=== PATIENT | female | born 1975 | race Caucasian/White ===

== ENCOUNTER 2024-02-03 18:05 | Emergency (ER) | payer OTHER, SELFPAY ==
[2024-02-03 18:09] VITALS: BP 164/116
--- NOTE | 2024-02-03 19:18 | ED.GENMED ---
History of Present Illness
General
Chief Complaint: Cold/Flu/URI Symptoms
Source: patient
Exam Limitations: none
Time Seen by Provider: 02/03/24 18:38
History of Present Illness
History of Present Illness:
This is a 48 year old female that comes in with c/o right sided headache. States that on Monday a week ago she had some reflux and constipation. This happens sometimes before she gets sick. Then she started with a low grade fever and body aches.
States that on Monday she went to see the PCP and was told that this was viral. States that after she saw him she broke out in a rash all over. Then last night she started with a headache across the forehead. States that she was also vomiting with
this. Then today her face on the right sided is sensitive. States that her head to touch is very sensitive along with the right arm. States that this is normal for her migraines to be on one side. States that she had some diarrhea. Denies any
fever, chills, chest pain, SOB, abd pain, nausea, vomiting, dizziness, urinary burning. .
Past History
Past History
ED Past Medical History: GERD, Psychiatric (Anxiety) and Other ('Stomach issues', chronic intermittent constipation, migraines, Esophageal spams. Vertigo, )
ED Past Surgical History: (X 2), Gynecological (Oophorectomy L side) and Other (Hemorrhoidectomy, Anal fistulotomy)
Social History
Tobacco: Vaping (Vapes nicotine, one cartridge per day)
Alcohol: Occasional
Drug: None
Personal:
Living: with family
Employment: Employed
Family History
Family History: Hypertension
Review of Systems
Review of Systems
All Other Systems: ROS reviewed and negative except as documented in HPI and ROS
Constitutional: Reports no symptoms; Denies fever or chills
EENT: Reports no symptoms
Cardiac: Reports no symptoms; Denies chest pain
ABD/GI: Reports diarrhea; Denies abdominal pain, nausea or vomiting
: Reports no symptoms; Denies dysuria, frequency or urgency
Musculoskeletal: Reports no symptoms
Skin: Reports no symptoms
Neurological: Reports headache and other (right sided head and face sensitive to tough, ); Denies dizzy
Psychiatric: Reports no symptoms
Phy Exam
General Physical Exam
General Presentation: well appearing and no apparent distress
General age: appears stated age
General Skin: warm and dry
General Habitus: normal
General Mental: alert
General Hydration: dry mucous membranes
ENT Exam
ENT Exam: TM's normal, pharynx normal and neck supple
Eye Exam
Eye Exam: EOMI
Cardiovascular Exam
Cardiovascular Exam: regular rate/rhythm, no edema and normal peripheral pulses
Pulmonary Exam
Pulmonary Exam: lungs clear, no respiratory distress, no rales, chest non tender, no crackles, no rhonchi, no wheezing and no cough
Gastrointestinal Exam
Gastrointestinal Exam: normal bowel sounds, non tender, soft, no organomegaly, no pulsatile mass and non distended
Musculoskeletal Exam
Musculoskeletal Exam: full ROM and no edema
Skin Exam
Skin Exam: normal color, warm/dry, no petechia and other (Slight redness on the right neck area)
Psychiatric Exam
Psychiatric Exam: normal mood/affect
Course
Orders/Labs/Results
Orders:
Orders
02/03/24 19:17
0.9% Sodium Chloride 1000 ml [Nss] 1,000 ml IV BOLUS
Acetaminophen 1000MG/100Ml [Ofirmev] 1,000 mg in 100 ml IV ONCE
Acetaminophen IV Indication:: ED Narcotic Naive Pt-ONCE
Dexamethasone Sod Phosphate [Decadron] 20 mg IV NOW STA
Ketorolac [Toradol] 30 mg IV NOW STA
Test Result ONCE
02/03/24 19:24
Complete Blood Count/With Diff Urgent
Comprehensive Metabolic Panel Urgent
HCG, Serum Qualitative Screen Urgent
Abnormal Lab Results
02/03/24
19:24
WBC 2.5 L 10^3/uL
(4.8-10.8)
RBC 3.95 L 10^6/uL
(4.20-5.40)
Hgb 11.7 L g/dL
(12.0-16.0)
Hct 34.8 L %
(37.0-47.0)
MPV 11.7 H fL
(7.4-10.4)
Absolute Neuts (auto) 1.0 L 10^3/uL
(1.4-6.5)
02/03/24 19:24
02/03/24 19:24
Vital Signs
Initial and Last Documented VS:
Initial Vital Signs
Temp Pulse Resp BP Pulse Ox
99.7 F 95 16 164/116 99
02/03/24 18:09 02/03/24 18:09 02/03/24 18:09 02/03/24 18:09 02/03/24 18:09
Last Documented Vital Signs
Temp Pulse Resp BP Pulse Ox
99.7 F 61 20 123/75 97
02/03/24 18:09 02/03/24 20:00 02/03/24 20:00 02/03/24 20:00 02/03/24 20:05
MDM/Problems Addressed
Differential Diagnosis Includes:
Shingles, Migraines, viral syndrome
MDM/Problems Addressed:
this is a 48 year old female that comes in with c/o right sided head sensitivity and headache. Patient was sick a week ago on Monday. States that she had a rash all over her body after she had seen her PCP. This is mostly gone. Last night she
started with a headache and vomiting. Today her right face and head are sensitive to touch.
Will check labs and treat as Migraine. Offered patient a CT of the head but patient refused. Explained that there is no obvious herpetic rash at this time but this would be something that she needs to be watching for as shingles in only on the one
sided of the body and doesn't cross the mid line.
back into see patient. Explained that her wBC are low but this can also happen with a viral illness. Patient states that her headache is better but she was concerned about this right sided facial shocking and discomfort. Again brought up the CT scan
but patient refused. Will have patient follow up with the family doctor. Return with any concerns .
Chronic conditions affecting care:
Migraines
Acute Exacerbation and/or Progression of Chronic Illness:
Migraines
*Pulse Oximetry
Patient hypoxic: no
*EKG
Interpreted by ED Provider?: NA
Rate: EKG- N/A
*County Auditor Interpretation
Rate: County Auditor- N/A
*Critical Care Note
Total Time (30-74mins, 75-104mins- exclusive of procedures): Not Applicable
ED Attending Note
-
Portions of this chart may have been created with voice recognition software.� Occasional wrong word or��sound alike� substitutions may have occurred due to the inherent limitations of voice recognition software.
Discharge Plan
Departure
Patient Disposition: Home (Routine Discharge)
Date of Disposition: 02/03/24
Time of Disposition: 20:26
Patient with high blood pressure during this ER visit?: No
Condition: Good
Covid-19: Not Applicable
Discharge Problem:
Headache, Right sided facial pain
Instructions: Headache, Adult ED
Prescriptions:
No Action
calcium carbonate [Antacid (calcium carbonate)] 1 TABLET tablet,chewable
1 tab PO PRN PRN (Reason: heartburn)
famotidine [Pepcid AC] 10 MG tablet
10 mg PO BID
alprazolam 0.5 MG tablet
0.5 mg PO TIDPRN PRN (Reason: anxiety)
hniptmewlg-vklthieomvlnt-efra [Fioricet] 1 EACH capsule
1 ea PO PRN PRN (Reason: migraine)
Mylanta Maximum Strength Liq
30 ml PO PRN PRN (Reason: reflux)
sucralfate [Carafate] 1 GM/10 ML suspension
1 gm PO QIDPRN PRN (Reason: acid reflux) Qty: 560 0RF
eiqumnybr-sskotw-bqduxvse-scop [] 105 ML elixir
30 ml PO QIDPRN PRN (Reason: acid reflux) Qty: 360 0RF
Rx Instructions:
4 oz mylanta; 4 oz viscous lidocaine; 4 oz elixer
Referrals:
UNKNOWN - PT DOES,NOT KNOW [Family Provider] -
Activity Restrictions/Additional Instructions:
As discussed, your blood work shows that your WBC are low. This can happen with a viral illness. At this time there is no pustules on the right sided of the head or face. Please watch for any rash. Please increase your water intake to 8-8oz glasses
daily. Follow up with the family doctor. IF YOU HAVE ANY OTHER CONCERNS PLEASE RETURN TO THE EMERGENCY ROOM.
Interventions
Interventions:
*Risk Screen - Suicide Last Done: 02/03/24 19:26
*General Assessment Last Done: 02/03/24 19:26
ED- Fall Risk Assessment Last Done: 02/03/24 19:26
ED- Pulmonary Assessment Last Done: 02/03/24 19:39
Discharge Date and Time
Print Language: GERMAN
[2024-02-03] MEDS: NSS 1000 IV (19:25)
[2024-02-03] MEDS: OFIRMEV 100 IV (19:25)
[2024-02-03] MEDS: TORADOL 30 MG IV (19:25)
[2024-02-03 19:26] VITALS: BMI 33.0
[2024-02-03 19:30] VITALS: BP 143/91
[2024-02-03 19:45] LABS: % Eosinophils 1.6 % (0-6); % Lymphocytes 47.3 % (20.5-51.1); % Monocytes 8.6 % (1.7-9.3); % Neutrophils 42.5 % (42.2-75.2); Absolute Lymphocytes 1.2 10^3/uL (1.2-3.4); Absolute Monocytes 0.2 10^3/uL (0.1-0.6); Hematocrit 34.8 % (37.0-47.0); Hemoglobin 11.7 g/dL (12.0-16.0); Mean Corp Hgb Conc. 33.6 g/dL (33.0-37.0); Mean Corpuscular Hgb 29.6 pg (27.0-31.0); Mean Corpuscular Volume 88.1 fL (81.0-99.0); Mean Platelet Volume 11.7 fL (7.4-10.4); Nucleated Red Blood Cells % 0 %; Platelet Count 148 10^3/uL (130-400); Red Blood Cell Count 3.95 10^6/uL (4.20-5.40); Red Cell Dist. Width 12.5 % (11.5-14.5); White Blood Cell Count 2.5 10^3/uL (4.8-10.8)
[2024-02-03 20:00] VITALS: BP 123/75
[2024-02-03 20:00] LABS: HCG, Serum Qualitative Screen Negative
[2024-02-03 20:05] LABS: ALT (SGPT) 18 U/L (0-35); AST (SGOT) 22 U/L (14-36); Albumin 4.3 g/dl (3.5-5.0); Alkaline Phosphatase 70 U/L (38-126); Blood Urea Nitrogen 9 mg/dl (7-17); Calcium 9.3 mg/dl (8.4-10.2); Carbon Dioxide 25 mmol/L (22-30); Chloride 107 mmol/L (98-107); Estimated Creatinine Clearance 97 ml/min; Glucose 88 mg/dl (70-99); Potassium 3.9 mmol/L (3.5-5.1); Sodium 139 mmol/L (135-145); Total Bilirubin 0.2 mg/dl (0.2-1.3); Total Protein 6.7 g/dl (6.3-8.2); eGFR > 60.00
== END 2024-02-03 20:36 | disposition home or self-care (01) ==
LOC: EMR 18:05
PROVIDERS: Clinical Nurse Specialist Family Health; EMERGENCY PHYSICIAN Emergency Medicine
DX: R51.9 Headache, unspecified (principal); G50.1 Atypical facial pain; R50.9 Fever, unspecified; R11.10 Vomiting, unspecified; R21 Rash and other nonspecific skin eruption; R19.7 Diarrhea, unspecified; F41.9 Anxiety disorder, unspecified; K21.9 Gastro-esophageal reflux disease without esophagitis; F17.290 Nicotine dependence, other tobacco product, uncomplicated; Z88.2 Allergy status to sulfonamides; Z88.8 Allergy status to other drugs, medicaments and biological substances; Z88.1 Allergy status to other antibiotic agents; Z91.010 Allergy to peanuts
CPT/HCPCS: 99284; 96374; 96375; 80053; 84703; 85025

== ENCOUNTER 2024-06-15 09:19 | Emergency (ER) | payer OTHER, SELFPAY ==
[2024-06-15 09:26] VITALS: BP 155/94
--- NOTE | 2024-06-15 11:17 | ED.GENMED ---
History of Present Illness
General
Chief Complaint: Skin Problem
Source: patient
Exam Limitations: none
Time Seen by Provider: 06/15/24 10:51
Nursing documentation reviewed up to this point in time: agreed with
History of Present Illness
History of Present Illness:
Patient is a 49F female with hx GERD, anxiety presenting for evaluation of generalized rash. Patient states that she initially noticed small area of rash on her right lower leg in early May. This cleared up however over the past 2 weeks
patient noticed red, itchy rash across her body. Spots come and go throughout the day although appear worse at night. Lesions are very itchy causing difficulty sleeping. Patient denies any fevers, recent viral illnesses. She has not noted any
lesions in mouth.
Patient denies any associated fever, chills, headache, shortness of breath or difficulty breathing.
Patient denies any known new exposures or allergens. No known bug bites. No recent travel.
Patient was seen by her primary care about a week ago who advised that she use a antihistamine and Pepcid although has also been improvement
Past History
Past History
ED Past Medical History: GERD, Psychiatric (Anxiety) and Other ('Stomach issues', chronic intermittent constipation, migraines, Esophageal spams. Vertigo, )
ED Past Surgical History: (X 2), Gynecological (Oophorectomy L side) and Other (Hemorrhoidectomy, Anal fistulotomy)
Social History
Tobacco: Vaping (Vapes nicotine, one cartridge per day)
Alcohol: Occasional
Drug: None
Personal:
Living: with family
Employment: Employed
Family History
Family History: Hypertension
Review of Systems
Review of Systems
Allergies reviewed?: Yes
All Other Systems: ROS reviewed and negative except as documented in HPI and ROS
Phy Exam
Physical Exam
Physical Exam:
Vitals: Patient's vital signs are stable. Afebrile
General: Patient is well appearing, no acute distress. Nontoxic appearing
Skin: Very few scattered blanching erythematous papules and patches on upper and lower extremities. No evidence of mucosal involvement. No rash on palms or soles.
Head: Normocephalic, atraumatic
Throat: No oral lesions or palatal petechiae protecting airway
Neck: Normal ROM, no cervical spine tenderness
Cardiac: Regular rate
Pulm: No apparent respiratory distress. Lungs clear bilaterally
Abdomen: Soft and nontender. Nondistended
Extremities: No evidence of cyanosis or edema. Palpable DP pulses
Neuro: Grossly intact
Psychiatric: Normal affect.
Course
Vital Signs
Initial and Last Documented VS:
Initial Vital Signs
Temp Pulse Resp BP Pulse Ox
98.1 F 113 18 155/94 100
06/15/24 09:26 06/15/24 09:26 06/15/24 09:26 06/15/24 09:26 06/15/24 09:26
Last Documented Vital Signs
Temp Pulse Resp BP Pulse Ox
98.1 F 113 18 155/94 100
06/15/24 09:26 06/15/24 09:26 06/15/24 09:26 06/15/24 09:26 06/15/24 09:26
MDM/Problems Addressed
Differential Diagnosis Includes:
Not limited to: contact dermatitis, urticaria, atopic dermatitis, bedbugs, granuloma annulare, etc.
MDM/Problems Addressed:
49-year-old female presenting for evaluation of pruritic rash, intermittent over the past few weeks. No mucosal involvement. No associated oral swelling, shortness of breath, GI symptoms. No recent viral illness. No fever. Patient mildly
hypertensive and tachycardic on arrival although normalized by my assessment. On exam�patient is in no apparent distress. She has very few scattered erythematous papules and patches on bilateral upper and lower extremities. No petechial lesions.
No evidence of mucosal involvement. Do not suspect contact dermatitis such as poison amna given course/appearance of rash. Do not suspect bedbugs or scabies. Do not suspect drug reaction. It is possible it is other contact exposure versus
urticarial lesions. Very low suspicion for acute emergent process. Feel patient is stable for outpatient management. discussed with patient regarding dermatology follow-up for possible biopsy if lesions persist given very few visible lesions today
on exam. Will trial very short course of low-dose steroids and antihistamines for symptomatic relief. Return precautions discussed at length with patient. She will follow closely with dermatology. Case seen with attending physician.
Chronic conditions affecting care:
N/A
Acute Exacerbation and/or Progression of Chronic Illness:
N/A
*Pulse Oximetry
Patient hypoxic: no
*EKG
Interpreted by ED Provider?: NA
*Setter Cold Rolling Machine Interpretation
Rate: Setter Cold Rolling Machine- N/A
*Critical Care Note
Total Time (30-74mins, 75-104mins- exclusive of procedures): Not Applicable
ED Attending Note
-
Portions of this chart may have been created with voice recognition software.� Occasional wrong word or��sound alike� substitutions may have occurred due to the inherent limitations of voice recognition software.
Discharge Plan
Departure
Patient Disposition: Home (Routine Discharge)
Date of Disposition: 06/15/24
Time of Disposition: 11:36
Patient with high blood pressure during this ER visit?: Yes
Condition: Good
Covid-19: Not Applicable
Discharge Problem:
Rash
Instructions: Skin Rash (DC), BLOOD PRESSURE
Prescriptions:
New
prednisone 20 mg tablet
20 mg PO DAILY Qty: 5 0RF
No Action
calcium carbonate [Antacid (calcium carbonate)] 1 TABLET tablet,chewable
1 tab PO PRN PRN (Reason: heartburn)
famotidine [Pepcid AC] 10 MG tablet
10 mg PO BID
alprazolam 0.5 MG tablet
0.5 mg PO TIDPRN PRN (Reason: anxiety)
dcfmlsocqp-fukarshkmvgzq-cwva [Fioricet] 1 EACH capsule
1 ea PO PRN PRN (Reason: migraine)
Mylanta Maximum Strength Liq
30 ml PO PRN PRN (Reason: reflux)
sucralfate [Carafate] 1 GM/10 ML suspension
1 gm PO QIDPRN PRN (Reason: acid reflux) Qty: 560 0RF
xbdiamitj-orrkzr-fqtbzpkn-scop [] 105 ML elixir
30 ml PO QIDPRN PRN (Reason: acid reflux) Qty: 360 0RF
Rx Instructions:
4 oz mylanta; 4 oz viscous lidocaine; 4 oz elixer
Referrals:
Hector Hoff DO [Family Provider] - Follow up in 1 week
Activity Restrictions/Additional Instructions:
RETURN TO THE EMERGENCY DEPARTMENT WITH ANY SHORTNESS OF BREATH/DIFFICULTY BREATHING, ORAL SWELLING, ABDOMINAL PAIN, FEVERS, WORSENING IN CURRENT SYMPTOMS, OR ANY OTHER CONCERNS
-A prescription for steroids been sent to your pharmacy. You should take this once a day for the next 5 days.
-You can take Benadryl as needed before bed for itch. This may cause drowsiness and you should not take prior to driving. You can try OTC Sarna lotion
-As discussed that she should schedule appoint with your service shop foreman for further evaluation/management. You may require a biopsy of these lesions if symptoms persist
Monitor your symptoms closely and return to the emergency department with any acute worsening/new symptoms or any other concerns
Interventions
Interventions:
*Risk Screen - Suicide Last Done: 06/15/24 09:26
*General Assessment Last Done: 06/15/24 09:26
*Neglect/Abuse Screening Last Done: 06/15/24 11:34
ED- Fall Risk Assessment Last Done: 06/15/24 11:34
*ED COVID-19 Vaccine History Last Done: 06/15/24 09:26
*Nursing Disposition Last Done: 06/15/24 11:44
Discharge Date and Time
Discharge Date/Time: 06/15/24 11:45
Print Language: SLOVENIAN
== END 2024-06-15 11:45 | disposition home or self-care (01) ==
LOC: EMR 09:19
PROVIDERS: EMERGENCY PHYSICIAN Emergency Medicine; FAMILY PHYSICIAN Family Medicine
DX: R21 Rash and other nonspecific skin eruption (principal); K21.9 Gastro-esophageal reflux disease without esophagitis; F41.9 Anxiety disorder, unspecified; Z82.49 Family history of ischemic heart disease and other diseases of the circulatory system; F17.290 Nicotine dependence, other tobacco product, uncomplicated
CPT/HCPCS: 99282

== ENCOUNTER 2024-06-22 | Emergency (ER) | payer OTHER, SELFPAY ==
[2024-06-22 00:17] VITALS: BP 153/101
--- NOTE | 2024-06-22 02:55 | ED.GENMED ---
History of Present Illness
General
Chief Complaint: Skin Problem
Time Seen by Provider: 06/22/24 02:54
History of Present Illness
History of Present Illness:
TIME OF INITIAL ENCOUNTER: 3 AM
HPI: Patient presents with 3 weeks of ongoing pruritus. She did not tolerate steroids. She was placed on steroids here and then followed up with a phone manager. The phone manager recommended a prolonged course of steroids. The patient admits
to rather severe amount of anxiety as well. She had been taking Xanax. She then was concerned about the possibly of being allergic to Xanax. She states that when her symptoms started it started out as a rash that was concerning for Lyme but this
was not tested.
EXAM:
GENERAL: Well appearing in no distress
HEENT: Moist oral mucosa
CARDIOVASCULAR: No murmurs, normal heart rate, regular rhythm, No chest wall tenderness
PULMONARY: No respiratory distress, breath sounds are clear and equal
ABDOMEN: Soft with no peritoneal signs, no tenderness
NEUROLOGIC: Excellent strength all extremities, no coordination deficits
PSYCHIATRIC: Appropriate mental status, normal insight and judgement
EXTREMITIES: Nontender, no edema, moves all extremities equally
SKIN: There is some scattered urticarial type lesions diffusely noted to the torso and the proximal extremities
NUMBER AND COMPLEXITY OF PROBLEMS ADDRESSED AT THE ENCOUNTER
� Chronic conditions affecting care: Anxiety, current, migraines
� Acute Exacerbation and/or Progression of Chronic Illness: This is a subacute problem
� Differential Diagnosis includes: Anxiety, Lyme disease, nonspecific pruritus/allergic reaction
AMOUNT AND/OR COMPLEXITY OF DATA TO BE REVIEWED AND ANALYZED
� I performed an independent evaluation of and my interpretation is:
EKG:
CT:
X-rays:
Laboratory Studies: White count and hemoglobin are normal, chemistries and LFTs are normal, Lyme pending
Other:
� Review of other/old records: Patient was seen here 06/15/2024 and I reviewed the notes from that day at that time she was given a 5-day course of 20 mg of prednisone
� Clinical information was obtained by an independent historian: Spoke to at bedside
� Prescriptions/Medications Considered but not given:
� Further testing considered but not performed:
RISK OF COMPLICATIONS AND/OR MORBIDITY OR MORTALITY OF PATIENT MANAGEMENT
� Social determinants of health affecting care: Lives at home
� Discussion with other providers:
� Escalation of care including admission/observation vs risk of discharge considered: No clear indication for admission to the hospital. The patient overall does not want to be on steroids as she really does not tolerate these.
ANY OTHER UPDATES: We did talk about
4:30 AM: I reassessed patient. Blood work is reassuring. Lyme pending. Using a very low dose of steroids.
Past History
Past History
ED Past Medical History: GERD, Psychiatric (Anxiety) and Other ('Stomach issues', chronic intermittent constipation, migraines, Esophageal spams. Vertigo, )
ED Past Surgical History: (X 2), Gynecological (Oophorectomy L side) and Other (Hemorrhoidectomy, Anal fistulotomy)
Social History
Tobacco: Vaping (Vapes nicotine, one cartridge per day)
Alcohol: Occasional
Drug: None
Personal:
Living: with family
Employment: Employed
Family History
Family History: Hypertension
Phy Exam
Physical Exam
Physical Exam:
See HPI
Course
Orders/Labs/Results
Orders:
Orders
06/22/24 03:23
Complete Blood Count/With Diff Urgent
Comprehensive Metabolic Panel Urgent
Lyme Progressive Urgent
Abnormal Lab Results
06/22/24
03:23
MPV 11.7 H fL
(7.4-10.4)
Glucose 106 H mg/dl
(70-99)
06/22/24 03:23
06/22/24 03:23
Vital Signs
Initial and Last Documented VS:
Initial Vital Signs
Temp Pulse Resp BP Pulse Ox
36.6 C 125 20 153/101 99
06/22/24 00:17 06/22/24 00:17 06/22/24 00:17 06/22/24 00:17 06/22/24 00:17
Last Documented Vital Signs
Temp Pulse Resp BP Pulse Ox
36.6 C 125 20 153/101 99
06/22/24 00:17 06/22/24 00:17 06/22/24 00:17 06/22/24 00:17 06/22/24 00:17
*Critical Care Note
Total Time (30-74mins, 75-104mins- exclusive of procedures): Not Applicable
ED Attending Note
-
Portions of this chart may have been created with voice recognition software.� Occasional wrong word or��sound alike� substitutions may have occurred due to the inherent limitations of voice recognition software.
Discharge Plan
Departure
Prescriptions:
No Action
calcium carbonate [Antacid (calcium carbonate)] 1 TABLET tablet,chewable
1 tab PO PRN PRN (Reason: heartburn)
famotidine [Pepcid AC] 10 MG tablet
10 mg PO BID
alprazolam 0.5 MG tablet
0.5 mg PO TIDPRN PRN (Reason: anxiety)
cmezqasraj-iflhpgsxlmhxa-djaf [Fioricet] 1 EACH capsule
1 ea PO PRN PRN (Reason: migraine)
Mylanta Maximum Strength Liq
30 ml PO PRN PRN (Reason: reflux)
sucralfate [Carafate] 1 GM/10 ML suspension
1 gm PO QIDPRN PRN (Reason: acid reflux) Qty: 560 0RF
ohvcgedue-eoixvf-qesaafdf-scop [] 105 ML elixir
30 ml PO QIDPRN PRN (Reason: acid reflux) Qty: 360 0RF
Rx Instructions:
4 oz mylanta; 4 oz viscous lidocaine; 4 oz elixer
prednisone 20 mg tablet
20 mg PO DAILY Qty: 5 0RF
Referrals:
Hector Hoff DO [Family Provider] -
Interventions
Interventions:
*Risk Screen - Suicide Last Done: 06/22/24 00:17
*General Assessment Last Done: 06/22/24 00:17
*Neglect/Abuse Screening Last Done: 06/22/24 00:17
ED- Fall Risk Assessment Last Done: 06/22/24 03:12
*ED COVID-19 Vaccine History Last Done: 06/22/24 03:12
ED-Skin Assessment Last Done: 06/22/24 03:12
Discharge Date and Time
Print Language: FRENCH
[2024-06-22 03:52] LABS: % Basophils 0.3 % (0-2); % Eosinophils 2.5 % (0-6); % Immature Granulocytes 0.3 % (0-0.5); % Lymphocytes 30.7 % (20.5-51.1); % Monocytes 7.2 % (1.7-9.3); Absolute Eosinophils 0.2 10^3/uL (0-0.7); Absolute Lymphocytes 2.1 10^3/uL (1.2-3.4); Absolute Monocytes 0.5 10^3/uL (0.1-0.6); Absolute Neutrophils 4.1 10^3/uL (1.4-6.5); Hematocrit 37.6 % (37.0-47.0); Hemoglobin 12.7 g/dL (12.0-16.0); Mean Corp Hgb Conc. 33.8 g/dL (33.0-37.0); Mean Corpuscular Hgb 29.4 pg (27.0-31.0); Mean Platelet Volume 11.7 fL (7.4-10.4); Nucleated Red Blood Cells % 0 %; Platelet Count 224 10^3/uL (130-400); Red Blood Cell Count 4.32 10^6/uL (4.20-5.40); Red Cell Dist. Width 13.5 % (11.5-14.5); White Blood Cell Count 6.9 10^3/uL (4.8-10.8)
[2024-06-22 04:19] LABS: ALT (SGPT) 18 U/L (0-35); AST (SGOT) 18 U/L (14-36); Albumin 4.3 g/dl (3.5-5.0); Alkaline Phosphatase 59 U/L (38-126); Blood Urea Nitrogen 15 mg/dl (7-17); Calcium 9.2 mg/dl (8.4-10.2); Carbon Dioxide 25 mmol/L (22-30); Chloride 103 mmol/L (98-107); Glucose 106 mg/dl (70-99); Potassium 4.1 mmol/L (3.5-5.1); Sodium 138 mmol/L (135-145); Total Bilirubin 0.4 mg/dl (0.2-1.3); Total Protein 6.7 g/dl (6.3-8.2); eGFR > 60.00
[2024-06-22 04:43] VITALS: BP 117/83
== END 2024-06-22 04:44 | disposition home or self-care (01) ==
LOC: EMR
PROVIDERS: EMERGENCY PHYSICIAN Emergency Medicine; FAMILY PHYSICIAN Family Medicine
DX: L29.9 Pruritus, unspecified (principal); R21 Rash and other nonspecific skin eruption; F41.9 Anxiety disorder, unspecified; K21.9 Gastro-esophageal reflux disease without esophagitis; G43.909 Migraine, unspecified, not intractable, without status migrainosus; F17.290 Nicotine dependence, other tobacco product, uncomplicated; Z88.2 Allergy status to sulfonamides; Z88.8 Allergy status to other drugs, medicaments and biological substances; Z88.1 Allergy status to other antibiotic agents; Z91.010 Allergy to peanuts
CPT/HCPCS: 99283; 80053; 85025; 86618

== ENCOUNTER 2024-11-04 06:18 | Day surgery (SDC) | payer OTHER, SELFPAY | END 2024-11-04 14:09 | disposition home or self-care (01) | LOC: GI 06:18 | PROVIDERS: ATTENDING PHYSICIAN Internal Medicine Gastroenterology | DX: Z12.11 Encounter for screening for malignant neoplasm of colon (principal); K57.30 Diverticulosis of large intestine without perforation or abscess without bleeding; K64.8 Other hemorrhoids; D12.0 Benign neoplasm of cecum; D12.4 Benign neoplasm of descending colon; K63.5 Polyp of colon; Z80.0 Family history of malignant neoplasm of digestive organs | CPT/HCPCS: 45385; 88305 ==

== ENCOUNTER → 2025-02-11 18:29 | Outpatient (REF) | payer OTHER, SELFPAY | LOC: WDC 18:29 | PROVIDERS: ATTENDING PHYSICIAN Nurse Practitioner Adult Health; FAMILY PHYSICIAN Family Medicine | DX: Z12.31 Encounter for screening mammogram for malignant neoplasm of breast (principal) | CPT/HCPCS: 77063; 77067 ==